=== PATIENT | female | born 1950 | race Caucasian/White ===

== ENCOUNTER 2017-10-17 09:10 | Emergency (ER) | payer MEDICARE, OTHER ==
[~2017-10-17 09:10] MED LIST: BIOT5CAP PO; CARB-82 PO; CEF300 PO; CRAN1TAB10 PO; CRAN250T PO; LEV112 PO; LEVO75TA68 PO; LISI-362 PO; LISI20TA29 PO; LOR5/325 PO; MECL25TA9 PO; PHEN100C82 PO; PNEU0.5D3 IM; VITA-197 PO; VITA100T PO
--- NOTE | 2017-10-17 09:13 | ER Report ---
History and Physical Time Seen By MD: 09:13 HPI/ROS CHIEF COMPLAINT: Dizziness/fall HISTORY OF PRESENT ILLNESS: Patient is a 66-year-old female past medical history for seizure disorder on Tegretol and Dilantin. He has a history of benign positional vertigo. Patient normally walks with a walker. Patient states that she was ambulating this morning felt dizzy had double vision and then fell backwards striking her head there may have been a brief loss of consciousness. The vertigo has improved upon arrival to the emergency department. She denies any chest pain or shortness of breath she denies abdominal pain nausea vomiting or diarrhea. REVIEW OF SYSTEMS: Constitutional: No fever, no chills. Eyes: No discharge. ENT: No sore throat. Cardiovascular: No chest pain, no palpitations. Respiratory: No cough, no shortness of breath. Gastrointestinal: No abdominal pain, no vomiting. Genitourinary: No hematuria. Musculoskeletal: No back pain. Skin: No rashes. Neurological: Vertigo Allergies: Coded Allergies: No Known Drug Allergies (Unverified , 04/19/14) Home Meds Active Scripts Meclizine Hcl (MECLIZINE HCL) 12.5 Mg Tablet, 12.5 MG PO TID for vertigo, #15 TAB 0 Refills Prov:MENA SEGURA MD 10/17/17 Phenytoin Sodium Extended (DILANTIN) 100 Mg Capsule, 1 CAP PO TID, #270 CAPSULE 3 Refills Prov:SUSHMA FOLEY MD 05/20/17 Carbamazepine (TEGRETOL) 200 Mg Tablet, 2.5 TAB PO DAILY, #120 TAB 3 Refills 1 tab po q am, and 1.5 tab po q pm Prov:SUSHMA FOLEY MD 02/17/17 Lisinopril (LISINOPRIL) 10 Mg Tablet, 1 TAB PO QDAY, #90 TAB 3 Refills Prov:SUSHMA FOLEY MD 02/06/17 Levothyroxine Sodium (LEVOTHYROXINE SODIUM) 0.112 Mg Tab, 1 TAB PO QDAY, #90 TAB 4 Refills Prov:SUSHMA FOLEY MD 10/24/15 Reported Medications Cranberry Conc/C/Bacill Coag (AZO CRANBERRY TABLET) 1 Each Tablet, 1 TAB PO QDAY 07/17/17 Vitamin E Mixed (VITAMIN E) 400 Unit Capsule, 1 CAP PO QDAY, CAPSULE 07/06/15 Past Medical/Surgical History Past medical history for seizure disorder, hypertension hypothyroidism. Hx Smoking: No Smoking Status: Never Smoker Exposure to Second Hand Smoke?: Yes Hx Substance Use Disorder: No Hx Alcohol Use: No Constitutional Vital Sign - Last 24 Hours 10/17/17 10/17/17 10/17/17 10/17/17 09:15 09:16 09:25 09:30 Pulse 82 79 Resp 16 14 B/P (MAP) 144/79 144/79 (100) 153/76 (101) Pulse Ox 87 96 O2 Delivery Room Air 10/17/17 10/17/17 10/17/17 10/17/17 09:40 10:03 10:10 10:25 Pulse 81 73 75 Resp 16 13 20 Pulse Ox 94 98 95 O2 Flow Rate 2.0 10/17/17 10/17/17 10/17/17 11:00 11:01 11:02 Pulse 78 80 Resp 13 B/P (MAP) 106/79 (88) Pulse Ox 96 Intake and Output 10/17/17 10/17/17 10/18/17 15:00 23:00 07:00 Intake Total 500 ml Balance 500 ml Physical Exam General Appearance: The patient is alert, has no immediate need for airway protection and no signs of toxicity. Eyes: Pupils equal and round no pallor or injection. She has fatigable horizontal nystagmus that is bilateral ENT, Mouth: Mucous membranes are moist. Respiratory: There are no retractions, lungs are clear to auscultation. Cardiovascular: Regular rate and rhythm. [ ] Gastrointestinal: Abdomen is soft and non tender, no masses, bowel sounds normal. Neurological: Awake alert GCS 15. Patient is able to ambulate with assistance, she normally uses a walker. Patient has normal sensation and normal gross motor strength. Skin: Warm and dry, no rashes. Musculoskeletal: Neck is supple non tender. Extremities are nontender, nonswollen and have full range of motion. Medical Decision Making Data Points Result Diagram: 10/17/17 0940 10/17/17 1021 Laboratory Hematology Test 10/17/17 09:40 10/17/17 10:21 10/17/17 10:34 Red Blood Count 4.65 M/uL (4.17-5.56) Mean Corpuscular Volume 95.6 fL (80.0-96.0) Mean Corpuscular Hemoglobin 32.4 pg (26.0-33.0) Mean Corpuscular Hemoglobin Concent 34.0 g/dL (32.0-36.0) Red Cell Distribution Width 13.4 % (11.5-14.5) Mean Platelet Volume 8.1 fL (7.2-11.1) Neutrophils (%) (Auto) 54.8 % (39.4-72.5) Lymphocytes (%) (Auto) 33.9 % (17.6-49.6) Monocytes (%) (Auto) 9.9 % (4.1-12.4) Eosinophils (%) (Auto) 0.5 % (0.4-6.7) Basophils (%) (Auto) 0.9 % (0.3-1.4) Nucleated RBC Relative Count (auto) 0.1 /100WBC Neutrophils # (Auto) 2.7 K/uL (2.0-7.4) Lymphocytes # (Auto) 1.7 K/uL (1.3-3.6) Monocytes # (Auto) 0.5 K/uL (0.3-1.0) Eosinophils # (Auto) 0.0 K/uL (0.0-0.5) Basophils # (Auto) 0.0 K/uL (0.0-0.1) Nucleated RBC Absolute Count (auto) 0.00 K/uL Phenytoin (Dilantin) Level 23.3 ug/ml Phenytoin Last Dose Date . Carbamazepine (Tegretol) Level 5.6 ug/ml Carbamazepine Time Since Last Dose unk Carbamazepine Last Dose Date unk Sodium Level 141 mmol/L (137-145) Potassium Level 4.0 mmol/L (3.5-5.0) Chloride Level 103 mmol/L (98-107) Carbon Dioxide Level 27 mmol/L (22-31) Blood Urea Nitrogen 12 mg/dl (7-18) Creatinine 0.60 mg/dl (0.52-1.04) Glomerular Filtration Rate Calc > 60.0 Random Glucose 73 mg/dl (75-110) Calcium Level 8.8 mg/dl (8.4-10.2) Total Bilirubin 0.2 mg/dl (0.2-1.3) Aspartate Amino Transf (AST/SGOT) 16 U/L (0-35) Alanine Aminotransferase (ALT/SGPT) 23 U/L (0-56) Alkaline Phosphatase 118 U/L (0-126) Troponin I < 0.012 ng/ml Total Protein 7.0 gm/dl (6.3-8.2) Albumin 3.7 g/dl (3.5-5.0) Thyroid Stimulating Hormone (TSH) 0.18 uIU/ml (0.46-4.68) Urine Color Straw Urine Clarity Clear Urine pH 6.0 pH (4.8-9.5) Urine Specific [place] 1.003 Urine Protein Negative mg/dL (NEGATIVE) Urine Glucose (UA) Negative mg/dL (NEGATIVE) Urine Ketones Negative mg/dL (NEGATIVE) Urine Blood Small (NEGATIVE) Urine Nitrite Negative (NEGATIVE) Urine Bilirubin Negative (NEGATIVE) Urine Urobilinogen Negative mg/dL (0.2-1.9) Urine Leukocyte Esterase Negative (NEGATIVE) Urine RBC 1 /HPF (0-2/HPF) Urine WBC 1 /HPF (0-5/HPF) Urine Squamous Epithelial Cells Many /LPF (</=FEW) Urine Bacteria Negative /HPF (NONE-FEW) Urine Mucus None /HPF (NONE-FEW) Chemistry Test 10/17/17 09:40 10/17/17 10:21 10/17/17 10:34 White Blood Count 4.9 k/uL (4.5-11.0) Red Blood Count 4.65 M/uL (4.17-5.56) Hemoglobin 15.1 g/dL (12.0-16.0) Hematocrit 44.5 % (34.0-47.0) Mean Corpuscular Volume 95.6 fL (80.0-96.0) Mean Corpuscular Hemoglobin 32.4 pg (26.0-33.0) Mean Corpuscular Hemoglobin Concent 34.0 g/dL (32.0-36.0) Red Cell Distribution Width 13.4 % (11.5-14.5) Platelet Count 187 K/uL (150-450) Mean Platelet Volume 8.1 fL (7.2-11.1) Neutrophils (%) (Auto) 54.8 % (39.4-72.5) Lymphocytes (%) (Auto) 33.9 % (17.6-49.6) Monocytes (%) (Auto) 9.9 % (4.1-12.4) Eosinophils (%) (Auto) 0.5 % (0.4-6.7) Basophils (%) (Auto) 0.9 % (0.3-1.4) Nucleated RBC Relative Count (auto) 0.1 /100WBC Neutrophils # (Auto) 2.7 K/uL (2.0-7.4) Lymphocytes # (Auto) 1.7 K/uL (1.3-3.6) Monocytes # (Auto) 0.5 K/uL (0.3-1.0) Eosinophils # (Auto) 0.0 K/uL (0.0-0.5) Basophils # (Auto) 0.0 K/uL (0.0-0.1) Nucleated RBC Absolute Count (auto) 0.00 K/uL Phenytoin (Dilantin) Level 23.3 ug/ml Phenytoin Last Dose Date . Carbamazepine (Tegretol) Level 5.6 ug/ml Carbamazepine Time Since Last Dose unk Carbamazepine Last Dose Date unk Glomerular Filtration Rate Calc > 60.0 Calcium Level 8.8 mg/dl (8.4-10.2) Total Bilirubin 0.2 mg/dl (0.2-1.3) Aspartate Amino Transf (AST/SGOT) 16 U/L (0-35) Alanine Aminotransferase (ALT/SGPT) 23 U/L (0-56) Alkaline Phosphatase 118 U/L (0-126) Troponin I < 0.012 ng/ml Total Protein 7.0 gm/dl (6.3-8.2) Albumin 3.7 g/dl (3.5-5.0) Thyroid Stimulating Hormone (TSH) 0.18 uIU/ml (0.46-4.68) Urine Color Straw Urine Clarity Clear Urine pH 6.0 pH (4.8-9.5) Urine Specific [place] 1.003 Urine Protein Negative mg/dL (NEGATIVE) Urine Glucose (UA) Negative mg/dL (NEGATIVE) Urine Ketones Negative mg/dL (NEGATIVE) Urine Blood Small (NEGATIVE) Urine Nitrite Negative (NEGATIVE) Urine Bilirubin Negative (NEGATIVE) Urine Urobilinogen Negative mg/dL (0.2-1.9) Urine Leukocyte Esterase Negative (NEGATIVE) Urine RBC 1 /HPF (0-2/HPF) Urine WBC 1 /HPF (0-5/HPF) Urine Squamous Epithelial Cells Many /LPF (</=FEW) Urine Bacteria Negative /HPF (NONE-FEW) Urine Mucus None /HPF (NONE-FEW) Toxicology Test 10/17/17 09:40 Phenytoin (Dilantin) Level 23.3 ug/ml Phenytoin Last Dose Date . Carbamazepine (Tegretol) Level 5.6 ug/ml Carbamazepine Time Since Last Dose unk Carbamazepine Last Dose Date unk Urinalysis Test 10/17/17 10:34 Urine Color Straw Urine Clarity Clear Urine pH 6.0 pH (4.8-9.5) Urine Specific [place] 1.003 Urine Protein Negative mg/dL (NEGATIVE) Urine Glucose (UA) Negative mg/dL (NEGATIVE) Urine Ketones Negative mg/dL (NEGATIVE) Urine Blood Small (NEGATIVE) Urine Nitrite Negative (NEGATIVE) Urine Bilirubin Negative (NEGATIVE) Urine Urobilinogen Negative mg/dL (0.2-1.9) Urine Leukocyte Esterase Negative (NEGATIVE) Urine RBC 1 /HPF (0-2/HPF) Urine WBC 1 /HPF (0-5/HPF) Urine Squamous Epithelial Cells Many /LPF (</=FEW) Urine Bacteria Negative /HPF (NONE-FEW) Urine Mucus None /HPF (NONE-FEW) EKG/Imaging EKG Interpretation EKG shows normal sinus rhythm and is otherwise unremarkable Monitor Interpretation: Normal Sinus Rhythm Imaging [place] [facility] [place] NAME: Andria Couch : 1950 MR: [id number] V: [id number] EXAM DATE: [id number] ORDERING PHYSICIAN: MENA SEGURA TECHNOLOGIST: Location: [facility] Patient: Andria Couch : 1950 Visit/Account:[id number] Date of Sevice: 10/17/2017 Study: CT scan of the brain without intravenous contrast. Indication:Altered metal status Comparison study:None Technique: Multiple axial images were obtained through the brain without the use of intravenous contrast. One of the following dose optimization techniques was utilized in the performance of this exam: Automated exposure control; adjustment of the mA and/ or kV according to the patient's size; or use of an iterative reconstruction technique. Specific details can be referenced in the facility's radiology CT exam operational policy. The examination demonstrates no evidence of acute intracranial hemorrhage. There is no evidence of extra-axial collection or hydrocephalus. There is no abnormal density identified within the brain parenchyma. There are bilateral hygromas in the posterior fossa. This is unchanged. There is no evidence of disruption of the peripheral mehta-white junction. The bony structures are unremarkable. IMPRESSION: No acute intracranial abnormality Report Dictated By: Arias Isabel at 10/17/2017 10:08 AM Report E-Signed By: Arias Isabel at 10/17/2017 10:23 AM WSN:[facility] [place] [facility] [place] NAME: Andria Couch : 1950 MR: [id number] V: [id number] EXAM DATE: ORDERING PHYSICIAN: MENA SEGURA TECHNOLOGIST: Location: [facility] Patient: Andria Couch : 1950 Visit/Account:[id number] Date of Sevice: 10/17/2017 Study: Single portable view of the chest. Indication: Fall Comparison study: None. Technique: Single AP view of the chest demonstrates no evidence of acute infiltrate. There is no evidence of pleural effusion or pneumothorax. The left diaphragm is elevated. There are no previous studies available for comparison. IMPRESSION: No significant abnormality identified. Report Dictated By: Arias Isabel at 10/17/2017 9:48 AM Report E-Signed By: Arias Isabel at 10/17/2017 9:49 AM WSN:[facility] ED Course/Re-evaluation Clinical Indication for ER IV: IV Access ED Course 10/17/2017 9:54:29 am and at this time will be to evaluate for vertigo. We will perform CT imaging of the head we will draw blood for electrolytes CBC troponin. Re-evaluation 10/17/2017 11:05:27 am Patient improved after oral meclizine. Workup is unremarkable. We'll discharge home with family. Decision to Disposition Date: Oct 17, 2017 Decision to Disposition Time: 11:00 Depart Departure Latest Vital Signs Vital Signs Date Time Temp Pulse Resp B/P (MAP) Pulse Ox O2 Delivery O2 Flow Rate FiO2 10/17/17 11:02 106/79 (88) 10/17/17 11:01 80 10/17/17 11:00 13 96 10/17/17 10:03 2.0 10/17/17 09:15 Room Air Impression: Primary Impression: Vertigo Condition: Improved Disposition: HOME OR SELF-CARE Referrals: SUSHMA FOLEY MD (PCP) 2 Days New Scripts Meclizine Hcl (MECLIZINE HCL) 12.5 Mg Tablet 12.5 MG PO TID for vertigo, #15 TAB 0 Refills Prov: MENA SEGURA MD 10/17/17 Patient Instructions: Vertigo (DC) MENA SEGURA MD Oct 17, 2017 09:13
[2017-10-17] MEDS ORDERED: NS(*) 0.9% 500 ML BAG 500 ML IV ONE (09:14)
[2017-10-17] MEDS ORDERED: MECLIZINE HCL 25 MG TAB PO ONE (09:45)
--- NOTE | 2017-10-17 09:46 | EKG ---
FACILITY: [facility] - [place] PATIENT NAME: IRENA HENDERSON : [id number] MR: [id number] V: [id number] EXAM DATE: ORDERING PHYSICIAN: MENA SEGURA TECHNOLOGIST: Jae Hamlin Reason : Blood Pressure : / mmHG Vent. Rate : 076 BPM Atrial Rate : 076 BPM P-R Int : 146 ms QRS Dur : 072 ms QT Int : 386 ms P-R-T Axes : 037 -02 018 degrees QTc Int : 434 ms Normal sinus rhythm Normal ECG No previous ECGs available Confirmed by ULYSSES ISIDRO ([id number]) on 10/17/2017 4:50:53 PM Referred By: Confirmed By:ULYSSES ISIDRO
[2017-10-17 09:49] LABS: PLATELET COUNT, AUTOMATED 187 K/uL (150-450)
--- NOTE | 2017-10-17 10:04 | RADIOLOGY IMAGING REPORT ---
FACILITY: [facility] - [place] PATIENT NAME: Andria Couch : 1950 MR: [id number] V: [id number] EXAM DATE: ORDERING PHYSICIAN: MENA SEGURA TECHNOLOGIST: Location: [facility] - [place], [place] Patient: Andria Couch : 1950 Visit/Account:[id number] Date of Sevice: 10/17/2017 Study: Single portable view of the chest. Indication: Fall Comparison study: None. Technique: Single AP view of the chest demonstrates no evidence of acute infiltrate. There is no evid ence of pleural effusion or pneumothorax. The left diaphragm is elevated. There are no previous stud ies available for comparison. IMPRESSION: No significant abnormality identified. Report Dictated By: Arias Isabel at 10/17/2017 9:48 AM Report E-Signed By: Arias Isabel at 10/17/2017 9:49 AM WSN:[email or web address]
--- NOTE | 2017-10-17 10:26 | RADIOLOGY IMAGING REPORT ---
FACILITY: [facility] PATIENT NAME: Andria Couch : 1950 MR: [id number] V: [id number] EXAM DATE: ORDERING PHYSICIAN: MENA SEGURA TECHNOLOGIST: Location: [facility] - [place] Patient: Andria Couch : 1950 Visit/Account:[id number] Date of Sevice: 10/17/2017 Study: CT scan of the brain without intravenous contrast. Indication:Altered metal status Comparison study:None Technique: Multiple axial images were obtained through the brain without the use of intravenous contr ast. One of the following dose optimization techniques was utilized in the performance of this exam: Autom ated exposure control; adjustment of the mA and/or kV according to the patient's size; or use of an i terative reconstruction technique. Specific details can be referenced in the facility's radiology C T exam operational policy. The examination demonstrates no evidence of acute intracranial hemorrhage. There is no evidence of ex tra-axial collection or hydrocephalus. There is no abnormal density identified within the brain parenchyma. There are bilateral hygromas in the posterior fossa. This is unchanged. There is no evidence of disruption of the peripheral mehta-white junction. The bony structures are unremarkable. IMPRESSION: No acute intracranial abnormality Report Dictated By: Arias Isabel at 10/17/2017 10:08 AM Report E-Signed By: Arias Isabel at 10/17/2017 10:23 AM WSN:[email or web address]
[2017-10-17] MEDS ORDERED: MECL12.5 PO (11:01)
[2017-10-17 11:02] VITALS: BP 106/79
== END 2017-10-17 11:08 | disposition home or self-care (01) ==
LOC: ER 09:16
DX: R42 Dizziness and giddiness (principal); W18.30XA Fall on same level, unspecified, initial encounter
CPT/HCPCS: 70450; 71045; 80156; 80185; 81001; 84443; 84484; 85025; 93005; 96360; 99284; J7040; J8597; 82040; 82247; 82310; 82374; 82435; 82565; 82947; 84075; 84132; 84155; 84295; 84450; 84460; 84520